=== PATIENT | male | born 1965 | race Hispanic/Latino ===

== ENCOUNTER 2017-06-28 13:00 | Emergency (ER) | payer SELFPAY | END 2017-06-28 16:19 | disposition home or self-care (01) | LOC: ERS 13:00 | DX: H60.93 Unspecified otitis externa, bilateral (principal); R42 Dizziness and giddiness; F17.210 Nicotine dependence, cigarettes, uncomplicated; Z71.6 Tobacco abuse counseling | CPT/HCPCS: 99282; 99406 ==

== ENCOUNTER 2017-07-18 22:17 | Inpatient (IN) | payer SELFPAY ==
[2017-07-18 22:53] LABS: #Basophils 0.1 thou/uL (0.0-0.2); #Eosinphils 0.3 thou/uL (0.0-0.7); #Lymphocytes 2.7 thou/uL (1.20-3.40); #Monocytes 0.5 thou/uL (0.11-0.59); #Neutrophils 5.9 thou/uL (1.40-6.50); %Basophils 0.8 % (0.0-1.0); %Eosinophils 3.4 % (0.0-10.0); %Lymphocytes 28.3 % (21.0-51.0); %Monocytes 4.9 % (0.0-10.0); %Neutrophils 62.6 % (42.0-75.0); Hemoglobin 13.4 g/dL (14.0-18.0); Mean Corpuscular HGB CONC 33.5 g/dL (32.0-36.0); Mean Corpuscular Hemoglobin 34.1 pg (27.0-31.0); Mean Platelet Volume 6.4 fL (7.4-10.4); Platelet Count 432 thou/uL (130-400); RBC Distribution Width 11.7 % (11.5-14.5); Red Blood Cell (RBC) Count 3.92 mill/uL (4.70-6.10); White Blood Cell (WBC) Count 9.4 thou/uL (4.8-10.8)
--- NOTE | 2017-07-18 23:07 | RAD ---
PORTABLE CHEST: Date: 07/18/17 HISTORY: Overdose. Mental status change. FINDINGS: Lungs appear clear. No infiltrate seen. Heart and mediastinum unremarkable. IMPRESSION: No acute findings. POS: [facility]
[2017-07-18 23:08] LABS: Prothrombin Time 13.2 SEC (12.0-14.7)
[2017-07-18 23:09] LABS: PTT 30.7 SEC (22.9-36.1)
[2017-07-18 23:10] LABS: Acetaminophen Less than 6.0 mcg/mL (10.0-30.0); Alcohol 264 mg/dL (Less than 10); Salicylate Less than 8.0 mg/dL (15.0-30.0)
[2017-07-18 23:12] LABS: ALT (SGPT) 16 U/L (8-55); AST (SGOT) 22 U/L (5-34); Albumin 4.3 g/dL (3.5-5.0); Alcohol 266 mg/dL (Less than 10); Alkaline Phosphatase 82 U/L (40-150); Anion Gap 14 mmol/L (10-20); BUN (Urea Nitrogen) 6 mg/dL (8.4-25.7); Bilirubin, Total 0.3 mg/dL (0.2-1.2); Calc. Creatinine Clearance 0 mL/min (70-130); Calcium 9.1 mg/dL (7.8-10.44); Carbon Dioxide 23 mmol/L (22-29); Chloride 101 mmol/L (98-107); Estimated GFR-MDRD Greater than 90; Globulin 3.4 g/dL (2.4-3.5); Glucose 107 mg/dL (70-105); Lipase 34 U/L (8-78); Potassium 3.5 mmol/L (3.5-5.1); Protein, Total 7.7 g/dL (6.0-8.3); Sodium 134 mmol/L (136-145)
[2017-07-18 23:16] LABS: CKMB 2.5 ng/mL (0-6.6); Troponin I Less than 0.010 ng/mL (< 0.028)
[2017-07-18] MEDS ORDERED: Naloxone HCl 0.4 mg/ml Vial ONE (23:16)
[2017-07-18] MEDS ORDERED: Fentanyl 100 MCG/2 ML VIAL ONE (23:23)
[2017-07-18] MEDS ORDERED: Succinylcholine Chloride 20 MG/ML 10 ml SYRINGE FS ONE (23:23)
[2017-07-18] MEDS ORDERED: Midazolam HCl 5 mg/ml Vial ONE (23:44)
[2017-07-18] MEDS ORDERED: Propofol 1,000 MG/100 ML VIAL IV ONE (23:50)
[2017-07-19 00:14] LABS: Actual Bicarbonate (HCO3a) 21.1 mEq/L (22-26); Base Excess (BEa) -3.8 mEq/L (0 (+/-) 2.5); CO2 Tension 37.8 mmHg (35.0-45.0); Hematocrit-ABG 35.4 % (42.0-52.0); O2 Tension (PaO2) 359.8 mmHg (80.0-100.0); pH, Arterial 7.37 (7.35-7.45)
[2017-07-19 00:15] LABS: Analyzer IN Cardio ER; Calcium, Ionized 1.1 mmol/L (1.12-1.30); Puncture Site LBA
[2017-07-19] MEDS ORDERED: Fentanyl 100 MCG/2 ML VIAL ONE ×2 (00:25→00:53)
[2017-07-19] MEDS ORDERED: Ampicillin/Sulbactam 3 GM in Sodium Chloride 0.9% 100 ML IVPB SCH (00:45)
[2017-07-19] MEDS ORDERED: Midazolam HCl 5 mg/ml Vial ONE (00:55)
[2017-07-19] MEDS ORDERED: fentaNYL Citrate/PF 2,000 MCG in Sodium Chloride 0.9% 60 ML IV SCH (01:06)
--- NOTE | 2017-07-19 01:55 | PDOC.EVN ---
Event Note - Event Note Event Note: Attending note. Seen and examined. Discussed in detail with residents. Pt OD'd on diazepam, ETOH, repotedly tylenol #3 as well. Unknown amounts. Intubated in ED. PMFSH and ROS is therefore unable to be completed. NAD, wakes up to voice, RODRIGEZ but does not follow commands. RRR s M CTAB s w/r/r PEERL, ETT in place, Right SC CVC in place Labs reviewed imaging reviewed. Overdose -contact poison control -repeat APAP level pending their rec's, NAC to follow if necessary -fent/versed vs propofol for sedation -anticipate extubation in the AM -psych when extubated, lucid -FA/thiamine/ASE when extubated 30 minutes of critical care time.
[2017-07-19] MEDS ORDERED: Norepinephrine 8 MG/0.9% NS 250 ML ONE (02:16)
[2017-07-19 02:24] LABS: Bilirubin Negative (Negative); Blood, Urine Negative (Negative); Clarity CLEAR (Clear); Glucose, Urine (Dipstick) Negative (Negative); Leukocyte Negative (Negative); Nitrite Negative (Negative); Protein, Urine (Dipstick) Negative (Neg-Trace); Specific Gravity, Urine 1.009 (1.002-1.036); Urobilinogen 0.2 mg/dL (0.2-1.0); pH, Urine 6.5 (5.0-9.0)
--- NOTE | 2017-07-19 02:24 | PDOC.FPRHP ---
- History of Present Illness Chief Complaint: unresponsive, SI, diazepam OD, alcohol intoxication History of Present Illness: Pt seen @ 0130 07/19 52 yo M with h/o prior suicide attempts presented to ED unresponsive, transfered via ems. History provided by ER physician. Pt was found to be unresponsive in his truck by his with empty diazepam bottle next to him and some half empty bottles of tylenol. Per er doc, reported he had mentioned "going to be with Adrian" earlier that day. He has h/o of prior suicide attempt by cutting in the past. ED Course: Given NAC Amp/sulbactam Intubated Versed Fentanyl Narcan - Allergies/Adverse Reactions Allergies Allergy/AdvReac Type Severity Reaction Status Date / Time No Known Allergies Allergy Unverified 07/19/17 00:04 - Home Medications Medication Instructions Recorded Confirmed Type No Known [No Known] 07/19/17 07/19/17 History - History PMHx: PSHx: FHx: Social: - Review of Systems ROS unobtainable: due to endotracheal tube - Vital signs BP: 119/92 HR: 78 RR: 18 Tmax: 95 Pox: 98% on RA Wt: 69Kg - Physical Exam Constitutional: other (sedated, intubated) HEENT: normocephalic and atraumatic, conjunctiva clear, no scleral icterus, other (intubated, pinpoint pupils) Neck: supple, trachea midline, no LAD Chest: no-tender to palpation, no lesions Heart: RRR, normal S1/S2, no murmurs/rubs/gallops, pulses present Lungs: CTAB, no respiratory distress, good air movement, no rales/rhonchi, no wheezing Abdomen: soft, non-tender, bowel sounds present, no masses/distention Musculoskeletal: normal structure, normal tone Neurological: no focal deficit, other (moves all four limbs, withdrawals from painful stimuli, sedated) Skin: good turgor, capillary refill <2 seconds Heme/Lymphatic: no unusual bruising or bleeding, no purpura FMR H&P: Results - Labs Result Diagrams: 07/18/17 22:42 07/18/17 22:42 Lab results: WBC 9.4 thou/uL (4.8-10.8) 07/18/17 22:42 Hgb 13.4 g/dL (14.0-18.0) L 07/18/17 22:42 Hct 39.9 % (42.0-52.0) L 07/18/17 22:42 MCV 102.0 fl (80.0-94.0) H 07/18/17 22:42 Plt Count 432 thou/uL (130-400) H 07/18/17 22:42 Neutrophils % 62.6 % (42.0-75.0) 07/18/17 22:42 ABG pH 7.37 (7.35-7.45) 07/19/17 00:10 ABG pCO2 37.8 mmHg (35.0-45.0) 07/19/17 00:10 ABG pO2 359.8 mmHg (80.0-100.0) H 07/19/17 00:10 Sodium 134 mmol/L (136-145) L 07/18/17 22:42 Potassium 3.5 mmol/L (3.5-5.1) 07/18/17 22:42 Chloride 101 mmol/L (98-107) 07/18/17 22:42 Carbon Dioxide 23 mmol/L (22-29) 07/18/17 22:42 BUN 6 mg/dL (8.4-25.7) L 07/18/17 22:42 Creatinine 0.71 mg/dL (0.6-1.3) 07/18/17 22:42 Glucose 107 mg/dL (70-105) H 07/18/17 22:42 Calcium 9.1 mg/dL (7.8-10.44) 07/18/17 22:42 Total Bilirubin 0.3 mg/dL (0.2-1.2) 07/18/17 22:42 AST 22 U/L (5-34) 07/18/17 22:42 ALT 16 U/L (8-55) 07/18/17 22:42 Alkaline Phosphatase 82 U/L (40-150) 07/18/17 22:42 CK-MB (CK-2) 2.5 ng/mL (0-6.6) 07/18/17 22:42 Serum Total Protein 7.7 g/dL (6.0-8.3) 07/18/17 22:42 Albumin 4.3 g/dL (3.5-5.0) 07/18/17 22:42 Lipase 34 U/L (8-78) 07/18/17 22:42 - EKG Interpretation EKG: Normal EKG - Radiology Interpretation Chest x-ray Status: report reviewed by me (GLENN) FMR H&P: A/P - Problem List (1) Respiratory failure Current Visit: Yes Status: Acute Code(s): J96.90 - RESPIRATORY FAILURE, UNSP , UNSP W HYPOXIA OR HYPERCAPNIA (2) Alcohol intoxication Current Visit: Yes Status: Acute (3) Hyponatremia Current Visit: Yes Status: Acute Code(s): E87.1 - HYPO-OSMOLALITY AND HYPONATREMIA (4) Intentional benzodiazepine overdose Current Visit: Yes Status: Acute Code(s): T42.4X2A - POISONING BY BENZODIAZEPINES, INTENTIONAL SELF-HARM, INIT - Plan 1) Respiratory failure: - 2/2 toxic ingestion. Benzo positive and known diazepam ingestion - Intubated and maintaining adequate oxygention - Continue supportive care - IVF NS @ 125 - Fentanyl and propofol for sedation while on vent 2) Diazepam OD: - supportive care, see above 3) Hypotension -levophed gtt - MAP > 65 4) Alcohol abuse - ASE when no longer intubated 5) Suicide attempt - consult [facility] when pt medically stable 6) Hyponatremia, mild - IVF NS @ 125 - recheck bmp Disposition/LOS: guarded, >/= 2 days. Symptomatic meds will be provided FMR H&P: Upper Level - Pertinent history Patient is 52yo M who presents with alcohol intoxication. Per ED report, patient was found by drunk in his truck and found an empty bottle of diazepam as well as 2 bottles of Tylenol #3 that were partially empty. EMS was called at that time and brought to the ED where he was subsequently intubated. Approximating time of acetaminophen ingestion around 9:30pm. In addition, per ED report states that they were having marital difficulties and earlier that day said he wanted to be with Adrian. - Pertinent findings Vital signs: BP- 80/53 HR 66 RR 12 O2 100% on vent Gen: intubated and sedated HEENT: ETT in place; pinpoint pupils, reactive BL, poor dentition Heart: S1 S2, RRR Lungs: ctab Ext: no cyanosis or edema - Plan Date/Time: 07/19/17222 Kirsty Tellez, have evaluated this patient and agree with findings/plan as outlined by editing internship resident. Pertinent changes/additions are listed here. 1. Acute Respiratory Failure: 2/2 alcohol intoxication and intentional OD. Admit to CCU. Initial alcohol level of 266. UDS positive for benzos. Initial acetaminophen level was normal. Approximating time of ingestion at 9:30pm. Poison control contacted by ED and repeat Tylenol level was to be done 4hrs later at 1:30am however that was not done. Contacted poison control again and will obtain stat acetaminophen level. They state that a level <85 is non-toxic and recommend continuing NAC protocol only if level is in the 70-80s. Patient has received loading dose of NAC only so far. 2. Intentional OD: See #1. Contact [facility] once stable. 3. Hypotension: cont levophed gtt and IVF 3. Alcohol intoxication: cont IVF, folate and thiamine. Will start ASE protocol upon extubation. 4. Macrocytic anemia: obtain RBC folate and B12. 5. Diet: NPO 6. PPx: lovenox 7. Code Status: Full. Attending Addendum - Attending Addendum Date/Time: 07/19/17 5127. Patient seen in ED. I personally evaluated the patient and discussed the management with Dr. Chau and Bárbara. I agree with the History, Examination, Assessment and Plan documented above with any addition or exceptions noted below and in my event note. Unable to obtain PMFSH d/t intubated/sedated.
[2017-07-19 02:25] LABS: Acetaminophen Less than 6.0 mcg/mL (10.0-30.0)
[2017-07-19 02:39] LABS: Amphetamine Not Detected (NotDetected); Barbiturates Screen Not Detected (NotDetected); Benzodiazepine Screen Detected (NotDetected); Cocaine Metabolite Screen Not Detected (NotDetected); Medtox Control Line Valid? VALID (VALID); Medtox Reader # READER 4; Methadone Not Detected (NotDetected); Methamphetamine Not Detected (NotDetected); Opiate Screen Not Detected (NotDetected); Oxycodone Screen Not Detected (NotDetected); Phencyclidine (PCP) Not Detected (NotDetected); THC/Cannabinoid Screen Not Detected (NotDetected); Tricyclic Screen Not Detected (NotDetected)
[2017-07-19] MEDS ORDERED: WATER IVPB ONE ×4 (03:15→04:30)
[2017-07-19] MEDS ORDERED: DEXTROSE 5% IVPB ONE ×4 (03:15→04:30)
[2017-07-19] MEDS ORDERED: ACETYLCYSTEINE IVPB ONE ×4 (03:15→04:30)
[2017-07-19] MEDS ORDERED: Propofol 1,000 MG/100 ML VIAL IV PRN (03:55)
[2017-07-19] MEDS ORDERED: Lorazepam 2 MG/ML VIAL SLOW IVP PRN (03:55)
[2017-07-19] MEDS ORDERED: Morphine 2 MG/ML SYRINGE SLOW IVP PRN (03:55)
[2017-07-19] MEDS ORDERED: DISCONTINUE PREVIOUS NARCOTIC PAIN MEDICATIONS AND BENZODIAZEPINES FS SCH (03:55)
[2017-07-19] MEDS ORDERED: Dextrose 5 %-0.45 % NaCl 1,000 ML IV SCH (04:00)
[2017-07-19] MEDS ORDERED: Ondansetron HCl/PF 4 MG/2 ML Vial IVP PRN (04:10)
[2017-07-19] MEDS ORDERED: Sedation Protocol FS ONE (04:10)
[2017-07-19] MEDS ORDERED: Norepinephrine 8 MG/0.9% NS 250 ML IVPB SCH (04:10)
[2017-07-19] MEDS ORDERED: Sodium Chloride 0.9% 1,000 ML IV SCH (04:10)
[2017-07-19 05:13] VITALS: BMI 26.1
[2017-07-19 05:18] LABS: Acetaminophen Less than 6.0 mcg/mL (10.0-30.0)
[2017-07-19 07:28] LABS: Actual Bicarbonate (HCO3a) 22.2 mEq/L (22-26); Base Excess (BEa) -3.4 mEq/L (0 (+/-) 2.5); CO2 Tension 42.2 mmHg (35.0-45.0); Calcium, Ionized 1.1 mmol/L (1.12-1.30); Hematocrit-ABG 33.9 % (42.0-52.0); O2 Tension (PaO2) 144.3 mmHg (80.0-100.0); pH, Arterial 7.34 (7.35-7.45)
[2017-07-19 07:29] LABS: Puncture Site RB
--- NOTE | 2017-07-19 08:27 | RAD ---
PORTABLE AP CHEST XRAY: DATE: 07/18/17. HISTORY: Intubated. COMPARISON: 07/18/17 at 2230 hours. FINDINGS: There has been interval placement of an endotracheal tube with the tip overlying the T4 vertebral bod y and above the level of the kae. Nasogastric tube has also been placed in the interim with the t ip overlying the left upper quadrant overlying the region of the gastric fundus. Cardiac silhouette and pulmonary vasculature are within normal limits. Lungs are clear. There is an oval-shaped radiopa que density overlying the left upper quadrant not seen on the prior study. This could be related to overlying artifact, but clinical correlation is recommended. IMPRESSION: 1. Oval-shaped radiopaque density overlying the left upper quadrant not seen on the study obtained j ust prior to this exam. This could potentially be related to overlying artifact. 2. Endotracheal tube and nasogastric tubes noted in place. The chest is otherwise stable. POS: [facility]
--- NOTE | 2017-07-19 08:42 | CT ---
PRELIMINARY REPORT/[facility]/EMERGENCY AFTER HOURS PROCEDURE: EXAM: CT Head Without Intravenous Contrast EXAM DATE/TIME: Exam ordered 07/19/2017 2:45 AM CLINICAL HISTORY: 52 years old, male; Signs and symptoms; Altered mental status/memory loss; Confusion or disorientatio n; Patient HX: Er 1; AMS; Od; Pd states pt was found by in his truck slumped over, had a six pac k of beer in his truck and had taken the rest of his valium pills (unknown how many). Pt was telling earlier today that he wanted to go be with jassi. They have been having marriage troubles, per w selena TECHNIQUE: Axial computed tomography images of the head/brain without intravenous contrast. COMPARISON: No relevant prior studies available. FINDINGS: Brain: Unremarkable. No hemorrhage. No significant white matter disease. No edema. Ventricles: Unremarkable. No ventriculomegaly. Bones/joints: Unremarkable. No acute fracture. Soft tissues: Unremarkable. Sinuses: Incidental sinus mucosal thickening present. No fluid levels to indicate sinusitis. Mastoid air cells: Unremarkable as visualized. No mastoid effusion. IMPRESSION: No acute findings. Thank you for allowing us to participate in the care of your patient. Dictated and Authenticated by: Jacky Albarran MD 07/19/2017 3:00 AM Central Time ([place] & [place]) FINAL REPORT EMERGENCY AFTER HOURS NONCONTRAST CT HEAD: DATE: 07/19/17. HISTORY: Patient found in truck slumped over. Altered mental status. COMPARISON: None available. IMPRESSION: 1. No acute intracranial abnormalities demonstrated. 2. Mild sinus disease. 3. Findings are in agreement with the preliminary report by [facility]. POS: [facility]
[2017-07-19] MEDS ORDERED: Famotidine/PF 20 mg/2ml Vial SLOW IVP SCH (09:00)
--- NOTE | 2017-07-19 09:08 | RAD ---
PORTABLE AP CHEST XRAY: DATE: 07/19/17 at 0141 hours. COMPARISON: 07/18/17. FINDINGS: Endotracheal tube and nasogastric tubes remain in place and unchanged in position. There has been in terval placement of a right subclavian central venous catheter with the tip overlying the distal SVC. No pneumothorax or pleural effusion is seen. The cardiac silhouette and pulmonary vasculature are within normal limits. Lungs are otherwise clear. IMPRESSION: Interval placement of a right subclavian central venous catheter. Remaining lines and tubes remain s table in position. POS: [place]
[2017-07-19 09:44] LABS: Magnesium 1.9 mg/dL (1.6-2.6); Phosphorus 3.2 mg/dL (2.3-4.7)
[2017-07-19] MEDS: Folic Acid 1 MG TAB PO SCH (10:17)
[2017-07-19] MEDS: Enoxaparin Sodium 40 MG/0.4 ML SYRINGE SC SCH (10:17)
[2017-07-19] MEDS ORDERED: FLU VACC QS2017-18 36 mo. & older 0.5 ML SYRINGE IM ONE (10:45)
--- NOTE | 2017-07-19 11:30 | CON ---
DATE OF SERVICE: 07/19/2017 SERVICE: Pulmonary Medicine. REASON FOR CONSULTATION: Intubated patient. HISTORY OF PRESENT ILLNESS: Patient is a 52-year-old male who was in his usual state of health until he got tinnitus. He presented to an urgent care clinic. He was given some benzodiazepine and narcotic medication. He took at home. He is a heavy drinker and drinks on a daily basis. He drinks a lot of alcohol, and also put down as much of his pills as he could. He was witnessed doing this towards the end of it. Ultimately, 911 was called. He presented to the Emergency Department and became increasingly somnolent. He was intubated for airway protection and tucked in to the ICU. Prior to this event, he was otherwise in his usual state of health. He is currently awake on mechanical ventilation. He denies having any chest pain or shortness of breath. Vent settings were adjusted to minimize them. There were no overnight events. PAST MEDICAL HISTORY: None. PAST SURGICAL HISTORY: None. SOCIAL HISTORY: Positive for alcohol. He does not use any illicit drugs or tobacco products. FAMILY HISTORY: Noncontributory. ALLERGIES: No known drug allergies. MEDICATIONS: List of inpatient medications were reviewed. Multiple updates were made. REVIEW OF SYSTEMS: This cannot be obtained as the patient is currently mechanically ventilated. PHYSICAL EXAMINATION: VITAL SIGNS: Afebrile, pulse 75, blood pressure 122/74 on Levophed. Respirations 22, saturation 98% on 21% FIO2 and PEEP of 5. GENERAL: Patient is intubated. He is awake and alert and CAM negative. HEENT: Normocephalic, atraumatic. Sclerae are white, conjunctivae pink. Oral mucosa moist without lesions. LUNGS: Decent air entry. He has got no prolonged expiratory phase or wheezing. HEART: Normal rate, regular. ABDOMEN: Soft, nontender, nondistended. Bowel sounds are positive. MUSCULOSKELETAL: No cyanosis or clubbing. No pitting in the bilateral lower extremities. NEUROLOGIC: Grossly nonfocal. LABORATORY DATA: WBC 9.4 and down trending, hemoglobin 13.4, platelets 432, 000. INR 1.0. pH 7.34, pCO2 of 42, pO2 of 144. Basic metabolic profile and liver function studies are essentially unremarkable. TSH 0.32. Troponin is negative x1. Magnesium and phosphorus were all within the normal limits. Vitamin B12 level is also normal. Lipase negative. Urinalysis negative x2. Benzodiazepine is positive. Acetaminophen level is less than the assay limit of 6 on three separate draws. Aspirin is negative. Plasma alcohol is 264. IMAGIN. CT of the brain demonstrates no acute intracranial abnormality. 2. Chest x-ray demonstrates a right subclavian central venous catheter is in good position. Endotracheal tube terminates roughly 3-4 cm above the level of the kae. There is no acute cardiopulmonary abnormality otherwise identified. A left costophrenic angle has been cut off. ASSESSMENT: 1. Respiratory failure secondary to inability to protect airway, resolved. 2. Intentional drug overdose with narcotic, benzodiazepine, and alcohol. 3. Alcohol abuse. PLAN: We will give the patient a spontaneous breathing trial. If he meets criteria, extubation will be considered after 30 minutes. Pulmonary Critical Care will continue to follow while the patient remains in this location. If he does well after extubation and is weaned off the Levophed fairly easily, we will start to mobilize him, feed him and discontinue his IV fluids. Critical care time: 30 minutes. MTDD
--- NOTE | 2017-07-20 06:38 | PDOC.FM ---
- Subjective Subjective: Feeling well this morning. He denies any pain or discomfort. He is tolerating meals and is oriented x2-3 immediately upon waking. - Objective MAR Reviewed: Yes Vital Signs & Weight: Vital Signs (12 hours) Temp Pulse Resp Pulse Ox 07/20/17 04:00 98.6 F 07/20/17 00:00 98.5 F 07/19/17 20:00 99.9 F H 74 18 95 Weight Weight 65.9 kg Most Recent Monitor Data Heart Rate from ECG 81 NIBP 119/56 NIBP BP-Mean 78 Respiration from ECG 20 SpO2 96 I&O: 07/18/17 07/19/17 07/20/17 06:59 06:59 06:59 Intake Total 1086 3185 Output Total 1100 1548 Balance -14 1637 Result Diagrams: 07/18/17 22:42 07/18/17 22:42 <Miranda Bojorquez E - Last Filed: 07/20/17 07:14> - Objective Vital Signs & Weight: Vital Signs (12 hours) Temp Pulse Resp Pulse Ox 07/20/17 08:00 97.9 F 82 15 96 07/20/17 07:00 97.9 F 07/20/17 04:00 98.6 F Weight Weight 65.9 kg Most Recent Monitor Data Heart Rate from ECG 77 NIBP 121/66 NIBP BP-Mean 79 Respiration from ECG 16 SpO2 96 I&O: 07/19/17 07/20/17 07/21/17 06:59 06:59 06:59 Intake Total 1086 3185 480 Output Total 1100 1548 600 Balance -14 1637 -120 Result Diagrams: 07/18/17 22:42 07/18/17 22:42 <Lary Hussein Paula - Last Filed: 07/20/17 14:53> Phys Exam - Physical Examination Constitutional: NAD HEENT: moist MMs missing teeth Neck: supple Respiratory: no wheezing, clear to auscultation bilateral Cardiovascular: RRR, no significant murmur Gastrointestinal: soft, non-tender, no distention, positive bowel sounds Musculoskeletal: no edema, pulses present Neurological: non-focal, moves all 4 limbs Psychiatric: normal affect Deviation from normal: oriented x2-3, said it was 2019 then confirmed upon redirection it was 2018 Skin: normal turgor, cap refill <2 seconds <Bojorquez,Miranda E - Last Filed: 07/20/17 07:14> Dx/Plan (1) Alcohol intoxication Status: Acute (2) Hyponatremia Code(s): E87.1 - HYPO-OSMOLALITY AND HYPONATREMIA Status: Acute (3) Intentional acetaminophen overdose Code(s): T39.1X2A - POISONING BY 4-AMINOPHENOL DERIVATIVES, SELF-HARM, INIT Status: Acute (4) Intentional benzodiazepine overdose Code(s): T42.4X2A - POISONING BY BENZODIAZEPINES, INTENTIONAL SELF-HARM, INIT Status: Acute (5) Respiratory failure Code(s): J96.90 - RESPIRATORY FAILURE, UNSP, UNSP W HYPOXIA OR HYPERCAPNIA Status: Acute - Plan Plan: 1) Respiratory failure: - 2/2 toxic ingestion. Benzo positive and known diazepam ingestion - Successfully extubated yesterday - Continue supportive care 2) Intentional OD with alcochol, diazepam and Tylenol #3 - Acetaminophen level remained below 6, no further mgmt per poison control - Needs sitter in room upon transfer out of ICU - Will notify MR today 3) Alcohol abuse - ASE protocol - Not requiring any medications - Multivitamin, B12 and Thiamine supplementation 4) Hypotension - Resolved 5) Alcohol abuse - ASE 6) Hyponatremia, mild - Improved 7) Macrocytic anemia, mild - B12 WNL - Folate pending 8) Slightly low TSH - Asymptomatic - Recheck in 1 month outpatient Diet: Regular PPX: Lovenox Dispo: Stable for transfer out of ICU with sitter and stable for D/C pending [facility] placement/assistance <Miranda Bojorquez - Last Filed: 07/20/17 07:14> Attending Addendum - Attending Addendum Date/Time: 07/20/17 1000 I personally evaluated the patient and discussed the management with Dr. Bojorquez I agree with the History, Examination, Assessment and Plan documented above with any addition or exceptions noted below. Intentional overdose of alcohol and benzos Acute hypoxic resp failure-resolved -Patient is medically cleared for discharge once evaluated by [facility]. <Lary Hussein - Last Filed: 07/20/17 14:53>
[2017-07-20] MEDS: Folic Acid 1 MG TAB PO SCH (07:57)
[2017-07-20] MEDS: Multivitamin W/ Minerals 1 TAB PO SCH (07:57)
[2017-07-20] MEDS: Enoxaparin Sodium 40 MG/0.4 ML SYRINGE SC SCH (07:58)
--- NOTE | 2017-07-20 12:16 | PRG ---
DATE OF SERVICE: 07/20/2016 SERVICE: Pulmonary Medicine INTERVAL HISTORY: The patient doing great from a respiratory standpoint. He denies any current feve rs, chills, nausea, vomiting or chest discomfort. Otherwise, there has been little change to his con dition. He was safely extubated yesterday and there were no events overnight. PHYSICAL EXAMINATION: VITAL SIGNS: Afebrile, pulse 77, blood pressure 121/66, respirations 16, saturation 96% on room air. GENERAL: The patient is awake, alert, in no apparent distress. LUNGS: Decreased air entry. There is no prolonged expiratory phase. HEART: Normal rate, regular. ABDOMEN: Soft, nontender, nondistended, bowel sounds positive. MUSCULOSKELETAL: No cyanosis or clubbing. There is no pitting in the bilateral lower extremities. NEUROLOGIC: Grossly nonfocal. ASSESSMENT: 1. Respiratory failure, resolved. 2. Metabolic encephalopathy, resolved. 3. Intentional drug overdose with narcotics, benzodiazepine and alcohol. 4. Alcohol abuse. DISCUSSION: From a purely respiratory perspective, the patient is stable for transition out of the [facility]. Truth be told, he can be discharged home from a lung standpoint. I will continue to follow if mary samayoa remains in this location, but once he goes to the floor, I will sign off. Please call with additio nal questions or concerns moving forward.
[2017-07-20 14:21] LABS: Folate,Hemolysate 242.8 ng/mL (Not Estab.); Hematocrit 32.8 % (37.5-51.0); RBC Folate Test Component 740 ng/mL (>498)
--- NOTE | 2017-07-21 07:21 | PDOC.FM ---
- Subjective Subjective: Feeling well this morning. Denies any tremors or symptoms of withdrawal. He is unsure if someone from [facility] has come to speak with him. - Objective MAR Reviewed: Yes Vital Signs & Weight: Vital Signs (12 hours) Temp Pulse Resp BP BP Pulse Ox 07/21/17 04:00 98.6 F 77 16 160/91 H 160/81 H 97 07/21/17 00:00 98.8 F 74 16 132/75 132/75 98 07/20/17 20:00 98.6 F 88 16 120/71 98 Weight Weight 70.817 kg Most Recent Monitor Data Heart Rate from ECG 82 NIBP 128/70 NIBP BP-Mean 76 Respiration from ECG 18 SpO2 96 I&O: 07/20/17 07/21/17 07/22/17 06:59 06:59 06:59 Intake Total 3185 1600 Output Total 1548 1100 Balance 1637 500 Result Diagrams: 07/18/17 22:42 07/18/17 22:42 <Miranda Bojorquez - Last Filed: 07/21/17 07:18> - Objective Vital Signs & Weight: Vital Signs (12 hours) Temp Pulse Resp BP BP Pulse Ox 07/21/17 08:00 98.5 F 78 16 137/75 137/75 98 07/21/17 04:00 98.6 F 77 16 160/91 H 160/81 H 97 Weight Weight 70.817 kg Most Recent Monitor Data Heart Rate from ECG 82 NIBP 128/70 NIBP BP-Mean 76 Respiration from ECG 18 SpO2 96 I&O: 07/20/17 07/21/17 07/22/17 06:59 06:59 06:59 Intake Total 3185 1600 240 Output Total 1548 1100 Balance 1637 500 240 Result Diagrams: 07/18/17 22:42 07/18/17 22:42 <Lary Hussein - Last Filed: 07/21/17 12:01> Phys Exam - Physical Examination Constitutional: NAD HEENT: moist MMs missing teeth Neck: supple Respiratory: no wheezing, clear to auscultation bilateral Cardiovascular: RRR, no significant murmur Gastrointestinal: soft, non-tender, no distention, positive bowel sounds Musculoskeletal: no edema, pulses present Neurological: non-focal, moves all 4 limbs Psychiatric: normal affect, A&O x 3 Skin: no rash <Miranda Bojorquez - Last Filed: 07/21/17 07:18> Dx/Plan (1) Alcohol intoxication Status: Acute (2) Hyponatremia Code(s): E87.1 - HYPO-OSMOLALITY AND HYPONATREMIA Status: Acute (3) Intentional acetaminophen overdose Code(s): T39.1X2A - POISONING BY 4-AMINOPHENOL DERIVATIVES, SELF-HARM, INIT Status: Acute (4) Intentional benzodiazepine overdose Code(s): T42.4X2A - POISONING BY BENZODIAZEPINES, INTENTIONAL SELF-HARM, INIT Status: Acute (5) Respiratory failure Code(s): J96.90 - RESPIRATORY FAILURE, UNSP, UNSP W HYPOXIA OR HYPERCAPNIA Status: Acute - Plan Plan: 1) Intentional OD with alcochol, diazepam and Tylenol #3 - Acetaminophen level remained below 6, no further mgmt per poison control - [facility] notified yesterday he is medically stable - He states he "doesn't know" what he was doing when he took all those medications 2) Alcohol abuse - ASE protocol, scoring 0-3 - Not requiring any medications - Multivitamin, B12 and Thiamine supplementation 3) Alcohol abuse - ASE 4) Hyponatremia, mild - Improved - Monitor outpatient 5) Macrocytic anemia, mild - B12 WNL - Folate pending - Monitor outpatient 6) Slightly low TSH - Asymptomatic - Recheck in 1 month outpatient Diet: Regular PPX: Lovenox Dispo: Pending [facility] assessment for placement vs. ok for home <Miranda Bojorquez - Last Filed: 07/21/17 07:18> Attending Addendum - Attending Addendum Date/Time: 07/21/17 5169 I personally evaluated the patient and discussed the management with Dr. Bojorquez I agree with the History, Examination, Assessment and Plan documented above with any addition or exceptions noted below. Intentional Overdose Suicide attempt -medical stable for discharge. [facility] recommends inpt psych at [facility]. <Lary Hussein - Last Filed: 07/21/17 12:01>
[2017-07-21] MEDS: Multivitamin W/ Minerals 1 TAB PO SCH (09:07)
[2017-07-21] MEDS: Folic Acid 1 MG TAB PO SCH (09:07)
[2017-07-21] MEDS: Enoxaparin Sodium 40 MG/0.4 ML SYRINGE SC SCH (09:07)
[2017-07-21] MEDS ORDERED: Ibuprofen 600 MG TAB PO SCH (14:45)
[2017-07-21 21:46] VITALS: BP 126/70; TEMP 98.3
--- NOTE | 2017-07-23 07:02 | DIS-2 ---
DATE OF ADMISSION: 07/19/2017 DATE OF DISCHARGE: 07/22/2017 RESIDENT: Miranda Bojorquez M.D. ADMITTING ATTENDING: Tyron Quinones MD DISCHARGE ATTENDING: Lary Hussein M.D. CONSULTS: [facility], Dr. Curry with Pulmonology. PROCEDURES: 1. Chest x-ray (07/18/2017): No acute findings. 2. Brain CT (07/18/2017): No acute findings. 3. Chest x-ray (07/18/2017): Radiopaque density overlying the left upper quadrant not seen on the st udy obtained prior to this exam. This could potentially relate to overlying artifacts. Endotracheal tube and NG tubes noted in place. Chest, otherwise stable. 4. Chest x-ray (07/19/2017): Interval placement of right subclavian central venous catheter. Remai jeremy lines and tubes remained stable in position. PRIMARY DIAGNOSIS: Intentional overdose. SECONDARY DIAGNOSES: 1. Alcohol intoxication. 2. Hyponatremia. 3. Intentional acetaminophen and benzodiazepine overdose. 4. Respiratory failure requiring intubation, results. DISCHARGE MEDICATIONS: 1. Multivitamin. 2. Thiamine 100 mg p.o. daily. 3. Folic acid 1 mg p.o. daily. HISTORY OF PRESENT ILLNESS AND HOSPITAL COURSE: Mr. Kirkpatrick presented after acute ingestion of an u nknown quantity of alcohol, diazepam, and Tylenol with Codeine. Family called EMS when he became non responsive in his truck. Earlier that day, he had told his that he wanted to do this as they calabrese d been having marital issues. He has a history of a prior suicide attempt by cutting in the past almaz roximately 1997. The patient was found to not be protecting his airway and was intubated. Tylenol l evel was checked routinely and remained under 6, although he was given 1 dose of N-acetylcysteine in the emergency room. He showed no other signs of any liver toxicity. He was easily weaned from the v ent the following morning and remained stable throughout his hospitalization. He did not show any si gns of acute alcohol withdrawal. His intentions were discussed with patient and family, and he dustin nued to deny that this is a suicide attempt and could not recall what he had done or why he had done it. [facility] can evaluate the patient and recommended inpatient hospitalization for his own safety due t o patient's ongoing denial of the events and at the time. He is being discharged in stable con dition to [facility] for inpatient psychiatric evaluation and assistance . DISPOSITION: Stable. DISCHARGE INSTRUCTIONS: 1. Location: [facility]. 2. Diet: Regular. 3. Activity: As tolerated. 4. Followup: Patient is recommended to establish care with a PCP within 1-2 weeks. Discharged to [facility].
== END 2017-07-22 00:14 | DRG 917 ==
LOC: ERS 22:17 → CCU 07-19 03:51 → T4-B 07-20 19:55
PROVIDERS: ADMIT Emergency Medicine; ATTEND Emergency Medicine
PROC: 02HV33Z Insertion of Infusion Device into Superior Vena Cava, Percutaneous Approach (ICD-10-PCS; principal; 2017-07-19)
PROC: 0BH17EZ Insertion of Endotracheal Airway into Trachea, Via Natural or Artificial Opening (ICD-10-PCS; 2017-07-19)
PROC: 5A1935Z Respiratory Ventilation, Less than 24 Consecutive Hours (ICD-10-PCS; 2017-07-19)
DX: T42.4X2A Poisoning by benzodiazepines, intentional self-harm, initial encounter (principal); G93.41 Metabolic encephalopathy; J96.01 Acute respiratory failure with hypoxia; T68.XXXA Hypothermia, initial encounter; I95.9 Hypotension, unspecified; E87.1 Hypo-osmolality and hyponatremia; T40.602A Poisoning by unspecified narcotics, intentional self-harm, initial encounter; T51.92XA Toxic effect of unspecified alcohol, intentional self-harm, initial encounter; F10.129 Alcohol abuse with intoxication, unspecified; T40.2X2A Poisoning by other opioids, intentional self-harm, initial encounter; Z91.5 Personal history of self-harm; D53.9 Nutritional anemia, unspecified; Y90.8 Blood alcohol level of 240 mg/100 ml or more; F17.210 Nicotine dependence, cigarettes, uncomplicated; Z78.1 Physical restraint status
CPT/HCPCS: 31500; 36415; 36416; 36556; 51702; 70450; 71045; 80053; 80306; 80307; 81003; 82553; 82607; 82747; 82805; 83690; 83735; 84100; 84443; 84484; 85014; 85025; 85610; 85730; 90471; 90682; 93005; 94002; 94003; 94760; 96361; 96365; 96366; 96367; 96368; 96375; 96376; A4216; G0008; J0132; J0295; J1650; J2250; J2270; J2310; J2704; J3010; J3411; J7050; J7070; Q2036; S0028

== ENCOUNTER 2018-08-17 19:15 | Emergency (ER) | payer SELFPAY | END 2018-08-17 20:41 | disposition home or self-care (01) | LOC: ERS 19:15 | DX: H69.93 Unspecified Eustachian tube disorder, bilateral (principal); J30.9 Allergic rhinitis, unspecified; K02.9 Dental caries, unspecified; F17.210 Nicotine dependence, cigarettes, uncomplicated | CPT/HCPCS: 99282 ==

== ENCOUNTER 2019-03-06 16:30 | Inpatient (IN) | payer SELFPAY ==
[2019-03-06 17:42] LABS: #Basophils 0.1 thou/uL (0.0-0.2); #Lymphocytes 1.5 thou/uL (1.20-3.40); #Monocytes 1.2 thou/uL (0.11-0.59); #Neutrophils 15.1 thou/uL (1.40-6.50); %Basophils 0.3 % (0.0-1.0); %Eosinophils 0.2 % (0.0-10.0); %Lymphocytes 8.5 % (21.0-51.0); %Monocytes 6.6 % (0.0-10.0); %Neutrophils 84.4 % (42.0-75.0); Hemoglobin 13.6 g/dL (14.0-18.0); Mean Corpuscular Hemoglobin 34.4 pg (27.0-31.0); Mean Platelet Volume 6.5 fL (7.4-10.4); Platelet Count 435 thou/uL (130-400); RBC Distribution Width 11.8 % (11.5-14.5); Red Blood Cell (RBC) Count 3.95 mill/uL (4.70-6.10); White Blood Cell (WBC) Count 17.9 thou/uL (4.8-10.8)
[2019-03-06 18:04] LABS: ALT (SGPT) 17 U/L (8-55); AST (SGOT) 24 U/L (5-34); Alkaline Phosphatase 88 U/L (40-110); Anion Gap 12 mmol/L (10-20); BUN (Urea Nitrogen) 10 mg/dL (8.4-25.7); Bilirubin, Total 0.5 mg/dL (0.2-1.2); Calc. Creatinine Clearance 0 mL/min (70-130); Calcium 9.3 mg/dL (7.8-10.44); Carbon Dioxide 24 mmol/L (22-29); Chloride 102 mmol/L (98-107); Estimated GFR-MDRD Greater than 90; Globulin 3.6 g/dL (2.4-3.5); Glucose 118 mg/dL (70-105); Lipase 17 U/L (8-78); Protein, Total 7.6 g/dL (6.0-8.3); Sodium 134 mmol/L (136-145)
[2019-03-06] MEDS ORDERED: Piperacillin/Tazobactam 3.375 GM VIAL ONE (20:04)
[2019-03-06] MEDS ORDERED: Ondansetron PF 4 MG/2 ML Vial ONE (20:04)
[2019-03-06] MEDS ORDERED: Morphine 4 MG/ML VIAL ONE ×2 (20:04→21:47)
[2019-03-06 20:29] LABS: Bacteria/HPF None Seen HPF (None Seen); Bilirubin Negative (Negative); Blood, Urine Trace (Negative); Clarity Clear (Clear); Glucose, Urine (Dipstick) Normal (Negative); Leukocyte Negative Leu/uL (Negative); Nitrite Negative (Negative); Protein, Urine (Dipstick) Negative (Neg-Trace); Squamous Epithelial None Seen HPF (0-3); Urobilinogen Normal mg/dL (Less than 2); WBC/HPF 0-3 HPF (0-3)
--- NOTE | 2019-03-06 20:30 | RAD ---
Exam: Chest one view HISTORY:Preoperative evaluation Comparison: None FINDINGS: Lungs: No masses or consolidation. Cardiac silhouette: Normal size Pulmonary vessels: Normal Pleural Spaces: Clear Pneumothorax: None Osseous abnormalities: None of acuity. IMPRESSION: No focal consolidation.
--- NOTE | 2019-03-06 20:34 | CT ---
CT OF THE ABDOMEN AND PELVIS: Date: 03-06-19 History: Right lower quadrant pain. Technique: Axial CT imaging at 5 mm intervals from the lung bases through the pubic symphysis with in travenous and oral contrast. Coronal and sagittal reformatted imaging obtained. FINDINGS: The imaged lung bases are unremarkable. No free intraperitoneal air. The liver, gallbladder, spleen, pancreas, adrenal glands, and kidneys demonstrate no acute findings. The sigmoid colon is decompressed with associated wall prominence. Under distention is favored over f ocal sigmoid colitis. There is prominent wall thickening involving the cecum. The appendix is markedly abnormal, demonstrat ing dilation, wall thickening, and periappendiceal fat stranding. The appendix measures up to 1 cm in transverse dimension. Findings are consistent with acute appendicitis. No evidence for associated ab scess. There is mild atherosclerotic calcification of the infrarenal abdominal aorta. There is no significant lymphadenopathy in the abdomen or pelvis. Review of the osseous structures de monstrates multilevel lumbar spine degenerative change, including joint space narrowing, subchondral sclerosis, and vacuum disc formation at L4-5 and bilateral facet hypertrophy at L4-5 and L5-S1. No wo rrisome lytic or blastic bone lesion. IMPRESSION: 1. CT evidence of acute appendicitis. 2. Results to called to Lynne Holly at 7:50 p.m. 03-06-19. POS: TAISHA
[2019-03-06 20:46] LABS: INR-International Normal Ratio 1.1; PTT 30.8 SEC (22.9-36.1); Prothrombin Time 14.1 SEC (12.0-14.7)
[2019-03-07] MEDS ORDERED: Promethazine HCl 25 MG/ML VIAL ONE (00:17)
[2019-03-07] MEDS ORDERED: Ketorolac Tromethamine 30 MG/ML VIAL ONE (00:17)
[2019-03-07] MEDS ORDERED: Morphine 4 MG/ML VIAL SLOW IVP PRN (01:41)
[2019-03-07] MEDS ORDERED: Ondansetron ODT 4 MG TAB SL PRN (01:42)
[2019-03-07] MEDS ORDERED: Ondansetron PF 4 MG/2 ML Vial IVP PRN (01:42)
[2019-03-07] MEDS ORDERED: D5 1/2 NS w/20 mEq KCL 1,000 ML IV SCH (01:45)
[2019-03-07] MEDS ORDERED: D5 1/2 NS w/20 mEq KCL 1,000 ML ONE ×2 (02:30→09:45)
[2019-03-07] MEDS ORDERED: Piperacillin/Tazobactam 4.5 GM in Sodium Chloride 0.9% 100 ML IVPB SCH ×2 (04:00→06:00)
[2019-03-07] MEDS ORDERED: Promethazine HCl 25 MG in Sodium Chloride 0.9% 50 ML IVPB PRN (05:40)
[2019-03-07 05:52] VITALS: BMI 22.1
[2019-03-07] MEDS: Ketorolac Tromethamine 30 MG/ML VIAL IVP SCH ×2 (06:04→13:07)
[2019-03-07] MEDS ORDERED: Bupivacaine/Epinephrine 0.25% 30 ML VIAL ONE (06:34)
--- NOTE | 2019-03-07 07:17 | HP ---
CHIEF COMPLAINT: Right lower quadrant abdominal pain. HISTORY OF PRESENT ILLNESS: The patient is a 53-year-old previously healthy male. He developed onset of abdominal pain yesterday morning. This became more severe and he presented to the emergency room last night. He had vomiting with onset of pain. In the emergency room, he underwent evaluation with laboratory and radiologic studies. His white blood cell count was noted to be elevated at 17.9. His chemistry profile was essentially unremarkable. CT scan revealed obvious findings consistent with acute appendicitis. He was given intravenous antibiotics, pain medication, and admitted to my service. He tells me that he currently feels better than he did when he arrived and he got some rest last night. PAST MEDICAL HISTORY: Per the medical record, he has history of prior suicide attempts. PAST SURGICAL HISTORY: None. MEDICATIONS: None. ALLERGIES: NO KNOWN DRUG ALLERGIES. PRIMARY CARE PHYSICIAN: None. PERSONAL AND SOCIAL HISTORY: He speaks very limited [place] even though he has lived in [facility] since 1983. His is present at bedside and is fluent in Palestinian. He is and has 3 children. He lives in [place]. He works in [employer]. He smokes 1/2 pack per day of cigarettes. He tells me he drinks beer, but not every day. REVIEW OF SYSTEMS: Unremarkable. FAMILY HISTORY: Noncontributory. PHYSICAL EXAMINATION: VITAL SIGNS: Temperature is 98.5, pulse 67, blood pressure 115/72. GENERAL: He is a well-developed, well-nourished, thin male, resting in bed, in no acute distress. He is alert and oriented x3. HEAD, EYES, EARS, NOSE, AND THROAT: Unremarkable. NECK: Supple without mass or tenderness. LUNGS: Clear to auscultation throughout. CARDIAC: Regular rate and rhythm without murmur. ABDOMEN: Soft with normoactive bowel sounds. He has no tenderness at all in the left side of his abdomen or the upper abdomen, but has acute tenderness in the right lower quadrant with guarding consistent with acute appendicitis. EXTREMITIES: Unremarkable. ASSESSMENT: Patient with acute appendicitis. PLAN: Laparoscopic appendectomy. I discussed the operation in detail with the patient as well as potential risks. He and his understand and agreed to proceed with surgery at this time. Job ID: [id number]
[2019-03-07] MEDS ORDERED: Midazolam HCl 2 mg/2 ml Vial ONE (08:09)
[2019-03-07] MEDS ORDERED: Fentanyl 100 MCG/2 ML VIAL ONE (08:09)
--- NOTE | 2019-03-07 10:08 | OP ---
DATE OF PROCEDURE: 03/07/2019 PREOPERATIVE DIAGNOSIS: Acute appendicitis. POSTOPERATIVE DIAGNOSIS: Acute appendicitis. PROCEDURE PERFORMED: Laparoscopic appendectomy. ANESTHESIA: General endotracheal. [employer] PRINCIPAL SOLUTION SPECIALIST: Kristyn Sahu, medical student. INDICATIONS: This patient is a 53-year-old male, who presents with findings consistent with acute appendicitis. He was taken to the operating room at this time for appendectomy. DESCRIPTION OF PROCEDURE: Informed consent was obtained, and the patient was taken to the operating room, where general endotracheal anesthesia was obtained with the patient in supine position. Abdomen was prepped with ChloraPrep and draped in sterile fashion. Local anesthetic was infiltrated using 0.25% Marcaine with epinephrine. A 5 mm infraumbilical incision was created through which a Veress needle was passed into the peritoneal cavity. Pneumoperitoneum was established using carbon dioxide up to pressure of 15 mmHg. A 5 mm trocar port was established through the same incision and laparoscopic camera was passed through this port. Under direct vision, 2 additional ports were placed including a 5 mm left lower quadrant port and a 12 mm suprapubic port. Attention was turned to the appendix. This was grossly inflamed and indurated consistent with obvious acute appendicitis. The small bowel was mobilized away from the appendix. There were some lateral peritoneal adhesions that were lysed with electrocautery. The appendix was quickly mobilized. Mesoappendix was grasped and divided using electrocautery. The base of appendix was skeletonized. It was still thickened at that level, and I then decided to divide using the stapler. A 45 mm blue load was utilized to divide the appendix at its base to incorporate a small cuff of cecum. The appendix was placed in specimen retrieval sac and removed through the suprapubic port. The fascia was closed with 0 Vicryl suture using a GraNee needle. Right lower quadrant was inspected. There was some mild oozing from the staple line that was controlled with electrocautery. The area was irrigated and all irrigant was aspirated. Pelvis was inspected and irrigated as well. There was no purulence anywhere. All ports and instruments were removed under direct vision. Pneumoperitoneum was carefully evacuated. A 0.25% Marcaine with epinephrine was infiltrated at each port site. Skin edges approximated with 4-0 Monocryl subcuticular suture. Dermabond was placed externally. There were no complications. The patient tolerated the procedure well was taken to recovery room in stable condition. Job ID: [id number]
[2019-03-07 12:16] VITALS: TEMP 98.3
[2019-03-07 14:58] VITALS: BP 125/63
[2019-03-08] MEDS ORDERED: FLU VACC QS2019-20(6MOS UP)/PF 60 MCG/0.5 ML SYRINGE IM ONE (09:00)
== END 2019-03-07 15:05 | disposition home or self-care (01) | DRG 343 ==
LOC: ERS 16:30 → ERHOLD 20:20 → T4-A 03-07 05:46
PROVIDERS: ADMIT Specialist; ATTEND Specialist
PROC: 0DTJ4ZZ Resection of Appendix, Percutaneous Endoscopic Approach (ICD-10-PCS; principal; 2019-03-07)
DX: K35.80 Unspecified acute appendicitis (principal); F17.210 Nicotine dependence, cigarettes, uncomplicated
CPT/HCPCS: 36415; 71045; 74177; 80053; 81003; 81015; 83690; 85025; 85610; 85730; 88304; 93005; 96365; 96367; 96372; 96375; 96376; J1885; J2175; J2250; J2270; J2405; J2543; J2550; J3010; J3490

== ENCOUNTER 2020-08-21 10:17 | Emergency (ER) | payer SELFPAY | END 2020-08-21 13:10 | disposition home or self-care (01) | LOC: ERS 10:17 | DX: H66.93 Otitis media, unspecified, bilateral (principal); F17.210 Nicotine dependence, cigarettes, uncomplicated | CPT/HCPCS: 99283 ==

== ENCOUNTER 2020-10-24 11:54 | Inpatient (IN) | payer MEDICAID, SELFPAY ==
[2020-10-24 12:56] LABS: #Basophils 0.1 thou/uL (0.0-0.2); #Eosinphils 0.3 thou/uL (0.0-0.7); #Lymphocytes 2.9 thou/uL (1.20-3.40); #Monocytes 0.6 thou/uL (0.11-0.59); #Neutrophils 5.4 thou/uL (1.40-6.50); %Basophils 0.9 % (0.0-1.0); %Eosinophils 3.5 % (0.0-10.0); %Lymphocytes 30.8 % (21.0-51.0); %Monocytes 6.3 % (0.0-10.0); %Neutrophils 58.6 % (42.0-75.0); Hemoglobin 12.9 g/dL (14.0-18.0); Mean Corpuscular HGB CONC 33.4 g/dL (32.0-36.0); Mean Corpuscular Hemoglobin 33.2 pg (27.0-31.0); Mean Corpuscular Volume 99.4 fL (78.0-98.0); Mean Platelet Volume 6.7 fL (7.4-10.4); Platelet Count 396 thou/uL (130-400); RBC Distribution Width 11.9 % (11.5-14.5); Red Blood Cell (RBC) Count 3.88 mill/uL (4.70-6.10); White Blood Cell (WBC) Count 9.3 thou/uL (4.8-10.8)
[2020-10-24 13:20] LABS: ALT (SGPT) 31 U/L (8-55); AST (SGOT) 28 U/L (5-34); Albumin 4.3 g/dL (3.5-5.0); Alkaline Phosphatase 83 U/L (40-110); Anion Gap 13 mmol/L (10-20); BUN (Urea Nitrogen) 11 mg/dL (8.4-25.7); Bilirubin, Total 0.2 mg/dL (0.2-1.2); Calc. Creatinine Clearance 0 mL/min (70-130); Calcium 9.3 mg/dL (7.8-10.44); Carbon Dioxide 21 mmol/L (22-29); Chloride 106 mmol/L (98-107); Globulin 3.5 g/dL (2.4-3.5); Glucose 102 mg/dL (70-105); Potassium 4.3 mmol/L (3.5-5.1); Protein, Total 7.8 g/dL (6.0-8.3); Sodium 136 mmol/L (136-145)
[2020-10-24] MEDS ORDERED: Ondansetron ODT 4 MG TAB PO PRN (15:41)
[2020-10-24] MEDS ORDERED: Ondansetron PF 4 MG/2 ML Vial IVP PRN (15:41)
[2020-10-24] MEDS ORDERED: Acetaminophen 325 MG TAB PO PRN (15:41)
[2020-10-24] MEDS ORDERED: Acetaminophen 650 MG Suppository PR PRN (15:41)
[2020-10-24] MEDS ORDERED: Aspirin 325 mg Enteric Coated Tablet PO SCH (15:45)
[2020-10-24 16:30] LABS: Troponin I Less than 0.010 ng/mL (< 0.028)
[2020-10-24] MEDS ORDERED: Acetic Acid/Hydrocor 2-1% Otic 10 ML BOT EA EAR SCH (18:00)
[2020-10-24 18:17] VITALS: BMI 26.2
[2020-10-24 19:34] LABS: Troponin I Less than 0.010 ng/mL (< 0.028)
[2020-10-24] MEDS: Atorvastatin Calcium 40 MG TAB PO SCH (21:04)
[2020-10-24] MEDS: NEOMYCIN-POLYMYXIN-HC EAR SUSP 200 DROP/10 ML BOT EA EAR SCH (22:03)
[2020-10-25] MEDS: NEOMYCIN-POLYMYXIN-HC EAR SUSP 200 DROP/10 ML BOT EA EAR SCH ×4 (04:00→20:52)
[2020-10-25 04:31] LABS: #Basophils 0.1 thou/uL (0.0-0.2); #Eosinphils 0.5 thou/uL (0.0-0.7); #Monocytes 0.6 thou/uL (0.11-0.59); #Neutrophils 4.8 thou/uL (1.40-6.50); %Basophils 1.7 % (0.0-1.0); %Eosinophils 5.3 % (0.0-10.0); %Lymphocytes 33.4 % (21.0-51.0); %Monocytes 6.7 % (0.0-10.0); Hemoglobin 12.1 g/dL (14.0-18.0); Mean Corpuscular HGB CONC 34.1 g/dL (32.0-36.0); Mean Corpuscular Hemoglobin 34.4 pg (27.0-31.0); Mean Platelet Volume 6.8 fL (7.4-10.4); Platelet Count 371 thou/uL (130-400); RBC Distribution Width 11.7 % (11.5-14.5); Red Blood Cell (RBC) Count 3.52 mill/uL (4.70-6.10)
[2020-10-25 05:01] LABS: Anion Gap 10 mmol/L (10-20); BUN (Urea Nitrogen) 13 mg/dL (8.4-25.7); Calc. Creatinine Clearance 109 mL/min (70-130); Carbon Dioxide 24 mmol/L (22-29); Cardiac Risk 6.5 (Less than 4.5); Chloride 106 mmol/L (98-107); Cholesterol 196 mg/dl (< 200 Desired); Glucose 99 mg/dL (70-105); HDL Cholesterol 30 mg/dL (>60 Neg Risk); LDL Cholesterol, Calculated 126 mg/dL; Potassium 3.9 mmol/L (3.5-5.1); Sodium 136 mmol/L (136-145); Triglycerides 198 mg/dL (Less than 150)
[2020-10-25] MEDS: Aspirin 81 mg Enteric Coated Tablet PO SCH (08:01)
[2020-10-25] MEDS: Meclizine HCl 12.5 MG TAB PO PRN ×2 (08:02→17:31)
[2020-10-25 13:06] LABS: SARS-CoV-2 PCR NAA for Saliva Not Detected (NotDetected)
[2020-10-25] MEDS: Atorvastatin Calcium 40 MG TAB PO SCH (20:51)
[2020-10-25] MEDS: Ciprofloxacin 0.2% Otic (0.25ML CONTAINER) EA EAR SCH (20:52)
[2020-10-26] MEDS: NEOMYCIN-POLYMYXIN-HC EAR SUSP 200 DROP/10 ML BOT EA EAR SCH ×2 (03:38→09:25)
[2020-10-26] MEDS: Ciprofloxacin 0.2% Otic (0.25ML CONTAINER) EA EAR SCH (07:50)
[2020-10-26] MEDS: Aspirin 81 mg Enteric Coated Tablet PO SCH (07:50)
[2020-10-26] MEDS: Meclizine HCl 12.5 MG TAB PO PRN (07:54)
[2020-10-26 11:52] VITALS: BP 160/77; TEMP 97.4
== END 2020-10-26 13:29 | disposition home or self-care (01) | DRG 149 ==
LOC: ERS 11:54 → INTOOBSV 14:36 → OBSVTOIN 14:36 → 2SE 14:36 → OBSVTOIN 10-25 14:44
PROVIDERS: ADMIT Internal Medicine; ATTEND Internal Medicine
DX: H81.393 Other peripheral vertigo, bilateral (principal); Z20.822 Contact with and (suspected) exposure to COVID-19; Z23 Encounter for immunization; I10 Essential (primary) hypertension; F17.210 Nicotine dependence, cigarettes, uncomplicated; E78.5 Hyperlipidemia, unspecified; H60.93 Unspecified otitis externa, bilateral; Z79.899 Other long term (current) drug therapy
CPT/HCPCS: 36415; 70450; 70551; 71045; 80048; 80053; 80061; 84484; 85025; 90471; 90732; 93005; 95712; 95819; 95957; G0009; G0378; U0003; U0005